=== PATIENT | female | born 2000 | race Caucasian/White ===

== ENCOUNTER 2024-01-19 22:00 | Emergency (ER) | payer BC ==
[~2024-01-19] VITALS: Ht 165.1 cm; Wt 53.2 kg
[2024-01-19 22:08] VITALS: O2SAT 98
[2024-01-19 22:09] VITALS: TEMP 98
[2024-01-19 22:39] VITALS: BP 112/68
[2024-01-19] MEDS: FAMOTIDINE IV BAG 20 MG in IV 1 EA IV ONE (22:40)
== END 2024-01-19 23:01 | disposition left against medical advice (07) ==
LOC: M ED 22:00 → EDBD 22:00 → M ED 23:01
DX: T78.01XA Anaphylactic reaction due to peanuts, initial encounter (principal); Z53.9 Procedure and treatment not carried out, unspecified reason; G40.909 Epilepsy, unspecified, not intractable, without status epilepticus; Z91.010 Allergy to peanuts; Z88.0 Allergy status to penicillin
CPT/HCPCS: 96374; 99284; S0028

== ENCOUNTER 2024-11-16 01:05 | Emergency (ER) | payer BC ==
[~2024-11-16] VITALS: Ht 165.1 cm; Wt 59.6 kg
[2024-11-16 01:12] VITALS: TEMP 98.6
[2024-11-16 03:45] VITALS: BP 94/55
[2024-11-16 06:50] VITALS: O2SAT 97
[2024-11-17 12:38] LABS: CARDIOLIPIN IGA ANTIBODY < 2.0 APL-U/mL (<20.0); CARDIOLIPIN IGG ANTIBODY < 2.0 GPL-U/mL (<20.0); CARDIOLIPIN IGM ANTIBODY < 2.0 MPL-U/mL (<20.0)
[2024-11-19 22:38] LABS: PROTEIN C FUNCTIONAL ACTIVITY 77 % normal (70-180); PROTEIN S FUNCTIONAL ACTIVITY 104 % normal (60-140)
[2024-11-21 16:08] LABS: FACTOR V LEIDEN FOR MEDINET NEGATIVE
[2024-11-21 16:21] LABS: FACTOR II PROTHROMBIN GENE AN NEGATIVE
[2024-11-22 05:28] LABS: ANTI THROMBIN 3 ANTIGEN IMMUNO 95 % normal (80-120); ANTI THROMBIN 3 FUNCT ACTIVITY 112 % normal (80-135)
== END 2024-11-16 07:01 | disposition home or self-care (01) ==
LOC: M ED 01:05
DX: R20.2 Paresthesia of skin (principal); M25.511 Pain in right shoulder; Z86.718 Personal history of other venous thrombosis and embolism; Z91.010 Allergy to peanuts; Z91.018 Allergy to other foods; Z88.0 Allergy status to penicillin